=== PATIENT | male | born 1935 | race Caucasian/White ===

== ENCOUNTER → 2020-11-23 12:29 | Outpatient (CLI) | payer OTHER, SELFPAY ==
[2020-11-23 11:51] VITALS: BMI 30.3
[2020-11-23 13:23] LABS: Absolute Lymphocyte Count 5.31 X10^3/uL (0.83-4.51); Absolute Neutrophil Count 3.1 X10^3/uL (2.0-7.7); Basophil# 0.06 X10^3/uL; Basophil% 0.6 % (0-1); Eosinophil# 0.23 X10^3/uL; Eosinophils% 2.4 % (0-5); Hematocrit 40.7 % (40-54); Hemoglobin 12.9 g/dL (13.0-16.5); Lymphocyte # 5.31 X10^3/ul (0.83-4.51); Lymphocyte % 56.1 % (19-41); Mean Corp Hgb Conc 31.7 g/dL (32-36); Mean Corpuscular Hgb 29.6 pg (27.0-32.0); Mean Corpuscular Volume 93.3 fL (80-94); Mean Platelet Vol. 8.9 fl (6.2-12.0); Monocyte# 0.74 X10^3/uL; Monocyte% 7.8 % (0-10); NRBC Flagged by Analyzer 0 % (0-5); Neutrophil # 3.11 X10^3/uL (2.7-7.7); Neutrophil % 32.9 % (47-70); POSITIVE DIFFERENTIAL YES; Platelet Count 227 K/mm3 (150-450); RBC Distribution Width CV 14.2 % (11.6-14.6); RBC Distribution Width SD 49.1 fl (35.1-43.9); Red Blood Count 4.36 M/mm3 (4.6-6.2); White Blood Count 9.5 K/mm3 (4.4-11.0)
[2020-11-23 13:24] LABS: Differential Indicated SCAN CRITERIA MET
[2020-11-23 13:44] LABS: Reactive Lymphocyte 2+
[2020-11-23 14:00] LABS: Anion Gap 4 (5-15); BUN 33 mg/dL (7-18); Calcium,Total 9.1 mg/dL (8.5-10.1); Chloride 106 mmol/L (98-107); Creatinine, Serum 1.32 mg/dL (0.70-1.30); EST Glomerular Filtration Rate 55 mL/min (>60); Est Glom Filt Rate - Afr Amer 67 mL/min (>60); Glucose 100 mg/dL (74-106); Potassium 4.5 mmol/L (3.5-5.1); Sodium Level 141 mmol/L (136-145)
== END ==
PROVIDERS: Referring Provider Physician Assistant; Visit Provider Physician Assistant
DX: I73.9 Peripheral vascular disease, unspecified (principal)
CPT/HCPCS: 36415; 80048; 85025

== ENCOUNTER 2020-11-28 10:45 | Day surgery (SDC) | payer SELFPAY, OTHER ==
[2020-11-23 11:51] VITALS: BMI 30.3
[2020-11-25 09:20] VITALS: BMI 30.2
--- NOTE | 2020-11-28 11:59 | HP.PCM_ITS ---
History and Physical Date of Admission: 11/28/20 Intake Visit Reasons: PAD--req pt come at 1130 Chief Complaint: PAD, painful and swollen toe Tax Assistant Required: No Is patient in pain?: No Allergies No Known Allergies Allergy (Verified 11/23/20 11:52) Medications aspirin 81 mg tablet,delayed release 81 mg PO DAILY 11/23/20 [History Confirmed 11/23/20] ezetimibe 10 mg-simvastatin 10 mg tablet 1 tab PO DAILY 11/23/20 [History Confirmed 11/23/20] furosemide 40 mg tablet 40 mg PO DAILY 11/23/20 [History Confirmed 11/23/20] levothyroxine 75 mcg capsule 75 mcg PO DAILY 11/23/20 [History Confirmed 11/23/20] metoprolol tartrate 25 mg tablet 25 mg PO BID 11/23/20 [History Confirmed 11/23/20] omega 6-kdx-inq-fish oil 60 mg-90 mg-500 mg capsule 1 cap PO DAILY 11/23/20 [History Confirmed 11/23/20] potassium chloride 10 mEq tablet,extended release 10 meq PO DAILY 11/23/20 [History Confirmed 11/23/20] saw palmetto 450 mg capsule 450 mg PO BID 11/23/20 [History Confirmed 11/23/20] vit C,E,zinc,Pi-eswwa-4-lutein-zeaxanthin 250 mg-2.5 mg-0.5 mg capsule cap PO 11/23/20 [History Confirmed 11/23/20] PFSH Medical History (Updated 11/23/20 @ 12:[address] Alejandro Tejada MD) CAD (coronary artery disease) HTN (hypertension) Hyperlipidemia Hypokalemia Hypothyroidism PAD (peripheral artery disease) Surgical History (Updated 11/23/20 @ 11:50 by Lori Gibson) History of knee replacement Hx of heart bypass surgery Family History (Updated 11/23/20 @ 11:51 by Lori Gibson) Mother Cancer Social History (Updated 11/23/20 @ 11:51 by Lori Gibson) Smoking Status: Never smoker HPI HPI HPI: ILANA DENSON, is a 85 M who presents to the office today for surgical consultation. The patient is being referred by Dr. Varela and a written copy of my surgical consult recommendations will return to her. Patient carries a history of lymphedema of the lower extremities. He reports leg pain with walking and sometimes discomfort at night requiring him to hang his legs over the bed. Distal pulses were noted to be absent on clinical exam.By report the patient had an ZAHIRA exam performed at [facility] on November 03, 2020 showing moderate disease to the right lower extremity. Appears for the right lower extremity the femoral and popliteal have triphasic waveforms while the right posterior tibial is biphasic and dorsalis pedis is monophasic. The right PT ZAHIRA was 0.7. The left lower extremity demonstrates again the femoral popliteal Doppler waveforms are triphasic while the left posterior tibial and dorsalis pedis waveforms are both biphasic. The left ZAHIRA is 0.59. For the past several months the patient has had markedly increased pain particularly in the right foot and the right great toe. Apparently there was s ome concern that he might have gout. There is discussion that he was placed on some type of tapering medication. Initially he felt better but after the medication wore off he now is worse. He feels more comfortable standing and walking on the foot. It is quite uncomfortable when he has it raised up against gravity. He has had any blisters. He has been trying heat and cold therapy. Someone instructed him that this was good for it. 2017 he had coronary bypass surgery. Vein was removed from the right leg. He did not have a myocardial infarction at that time according to family. He gaudencio es chest pain shortness of breath palpitations. He does not recall any coronary stents. Apparently also previously was on statin medication. There is some record that he did not tolerate that. He is not currently on a statin medication. When questioned about family history. He denies vascular disease in his parents. He denies myocardial infarction, stroke, diabetes, neuropathy. He denies any previous trauma to his feet. He denies previous episodes of frostbite ROS General General: Yes fatigue; No weight change, appetite, colon cancer, breast cancer or weakness HEENT HEENT: No difficulty swallowing, eye injury, eye surgery, swollen glands or hoarseness Endo Endocrine: Yes thyroid disease; No diabetes mellitus, thyroid cancer, Hair loss, heat intolerance or cold intolerance Musc Musculoskeletal: Yes arthritis; No back problems, rheumatoid arthritis, gout or joint pain Cardio Cardiovascular: Yes heart disease and high blood pressure; No murmur, pacemaker, atrial fibrillation, heart attack, heart stent, palpitations, shortness of breat with exertion or chest pain Psych Psychiatric: No depression, anxiety or hearing voices Resp Respiratory: No shortness of breath, No sleep apnea, No cough, No COPD, No asthma, No emphysema and No wheezing Gastro Gastrointestinal: No abdominal pain, No nausea or vomiting, No diarrhea, No constipation, No blood in stool, No acid reflux, No hemorrhoids, No ulcers, No gallbladder problem and No black,tarry stools Joshua Hematologic: No blood thinners, No blood disorders, No bleeding, No anemia and No blood clots Neuro Neurologic: No weakness Exam Const General: cooperative, comfortable and no acute distress Nutritional Appearance: overweight Orientation: alert and awake [facility] Head: normal to inspection Eyes General: appearance normal, both eyes and all related structures Chest Other: Well-healed median sternotomy Resp Effort & Inspection: normal respiratory effort Auscultation: clear to auscultation bilaterally Cardio Rate: regular rate Rhythm: regular rhythm Other: Mildly bradycardic GI Palpation: soft and no hepatosplenomegaly Musc Cervical Spine: normal cervical lordosis Skin General: no rashes or lesions noted Neuro Cognition: normal cognition Speech: speech normal Extrem Other: Marked erythema bilateral feet from the forefeet distally. Mild swelling of the right great toe. Marked tenderness to superficial palpation. Swelling of the right great toe DIP joint. Hypertrophic nails. Hair loss. Significant elevation pallor and dependent rubor bilaterally worse on the right. Point tenderness to light touch of the right great toe. The remaining digits are erythematous but nonpainful to touch 2+ pitting edema right malleolar area and 1+ pitting edema left malleolar area Psych Thought Process: normal COVID (Procedure Consent) Procedure Criteria Procedure Criteria: Yes Elective The surgeon/proceduralist and patient have discussed in detail the risk of exposure to and/or potential harm posed by the COVID-19 virus with having a surgery/procedure at this time versus the risk of delaying the surgery/procedure. It is not possible to know either the risk of delaying the surgery or procedure or chance of getting an infection with perfect accuracy, but a joint decision was made between the patient and the surgeon/proceduralist to proceed at this time with the scheduled surgery/procedure as indicated on the consent form. Assessment and Plan Plan Details Additional Comments: The patient's bilateral extremity issues revolve around more than just arterial occlusive disease. He has right lower extremity worse than left lower extremity edema. 2+ pitting on the right and 1+ on the left. However he clearly has distinct problems with elevation pallor or dependent rubor or elevation pain. He is got significant small vessel disease. He has findings very much coinciding with infrageniculate arterial occlusive disease. He is clinically consistent with critical ischemia of the right foot. Whether he additionally has gout of the right great toe I will defer to Dr. Varela and I have discussed with the patient and recommend a abdominal pelvic right lower extremity arteriogram with possible endovascular intervention. I explained the technique, benefit, risk, alternatives. Regarding his bilateral lower extremity swelling I have made it very clear that this will not improve that and could possibly worsen his swelling. My attempt will be an effort to try to relieve some of his right lower extremity rest pain/critical ischemia. Unfortunately I am in dissipating that he has significant small vessel disease of the forefoot and digits. He is aware that I am not able to mechanically improve those. He is aware of the potential risk of digit or limb loss. He has had an opportunity to ask and have questions answered. We will check laboratory and try to schedule and proceed at his earliest convenience. I appreciate the opportunity of assisting with his surgical care Copy: Dr. Varela and Dr. Jelani Tejada M.D., F.A.C.S I have re-examined the patient. There are no clinical changes since date of exam.
--- NOTE | 2020-11-28 15:37 | PCM.OPRPT ---
Problems Associated Problem List Diagnoses (1) PAD (peripheral artery disease): Report of Operation Date of Procedure: 11/28/20 Pre-Operative Diagnosis: Critical ischemia right foot Post-Operative Diagnosis: Multi segmental right lower extremity peripheral arterial occlusive disease Surgery/Procedure Performed:: Abdominal pelvic right lower extremity arteriogram with right anterior tibial 2 x 210 mm Laila cross angioplasty and right anterior tibial 2.5 to 3 mm tapered by 210 mm Laila cross angioplasty Description of Surgical Findings:: Timeout and informed consent was obtained. 85-year-old General was taken to the special procedure lab placed upon the table. He received a total of 50 mcg of fentanyl and 2 mg of Versed a central and station. Bilateral groins were sterilely prepped and draped. Under ultrasound guidance the left common femoral artery was identified. The separation of the profundofemoral and superficial femoral artery cleanly identified and then slightly more proximal inspection performed. Under ultrasound guidance 2% lidocaine was instilled as a local anesthetic and throughout the procedure a total of 15 cc was instilled in the left groin. Under ultrasound guidance micropuncture technique was used to gain access the left common femoral retrograde with flow micropuncture wire micropuncture sheath 035 J-wire 5 [place] short sheath dilator. Then an 03 5 inch Glidewire was used to advance a 5 [place] universal flush catheter into the mid infrarenal abdominal aorta. Using 15 cc a second for 15 cc of diluted contrast. I then used the flush catheter to gain access to the right common iliac advance the catheter down into the right superficial femoral artery static views of the right lower extremity were obtained. I then switched out and used a 035 Magic wire remove the flush catheter remove the 5 [place] sheath put a 6 [place] 70 cm sheath distally in the right superficial femoral artery. The patient received 9000 units of heparin. Based upon ACT measurements throughout the procedure he received another 1000 units later in the procedure. I utilized a pest control pilot 150 wire and a 4 [place] flush catheter gain access to the right anterior tibial artery. I then switched out for a 018 quick cross catheter and using the combination the quick cross catheter and the pest control pilot wire got access through 2 different areas of stenosis. I was able to get the wire to go all the way down to the malleolar where I could not advance catheter wire. Pulled the wire back reversed it and use the back and very gently break through the distal cap of obstruction. I then removed the quick cross catheter and initially I placed a 2.5 to 3 mm tapered balloon perform balloon angioplasty of the entire length of the right anterior tibial artery but could not get distal advancement. So I then placed a 2 x 210 mm Laila cross balloon over the pest control pilot 150 wire and again had difficulties advancing distally. I was then able to get far enough to remove the pest control pilot [address] a stabilizer wire. Finally I removed the 2 mm catheter and placed back in the 2.5 to 3 mm tapered catheter and was able to get that passed what I thought was the distal cap of obstruction and this was at the malleolar. I perform insufflation up to 14 kwaku of pressure and held that for 3 minutes. Completion views were obtained through hand-injection this demonstrated dramatic improvement in the previously occluded right anterior tibial. 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 I felt that this actually might assist the artery staying open. Did not have a means at this point of treating it decided to leave that in situ wait for the patient anticoagulation to resolve and wait for ongoing office clinical follow-up. The balloons were removed. 035 Magic wire was inserted. The sheath was withdrawn. A Perclose device was placed over the Magic wire and it successfully secured the vessel. Patient stated that his right foot felt slightly warmer. Doppler signal suggested improved dorsalis pedis flow in the right. Foot appeared to be viable. The left groin puncture site stable. He was subsequently taken to the recovery area in satisfactory condition no apparent complication. He will be initiated on clopidogrel therapy. Images demonstrate that the mid infrarenal abdominal aorta is patent though there is irregular plaque right lateral aspect that is not flow-limiting. Bilateral common iliacs internal X and external iliacs appear to be widely patent. The right profundofemoral and superficial femoral and popliteal are widely patent. There is a total knee device on the right which partially obscures the view but I believe that I am able to see well enough and because the flow was brisk enough that there is no clinically significant stenosis. There is evidence of trifurcation flow on the right but then soon thereafter the right peroneal occludes in the right posterior anterior tibial artery occludes in the right anterior tibial artery occludes then it refills for several centimeters then it occludes again and then the very distal right anterior tibial proximal dorsalis pedis is visualized. Subsequent to the right anterior tibial angioplasty there now appears to be recannulation of flow of the 2 areas of complete occlusion there appears to be distal flow down upon the foot there is as noted earlier evidence of an arteriovenous fistula that was created distally exact location not specified but there is venous return with contrast noted. Impression Successfully reopened 2 areas of complete occlusion involving the right anterior tibial artery with now flow into the dorsalis pedis on the right. 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 It is suggested that this is somewhat distal in the right anterior tibial. Occluded right peroneal and occluded right posterior tibial with no good distal flow of either noted. Surgeon: Alejandro Tejada Type of Anesthesia: IV Sedation and Local
[2020-11-28 16:20] VITALS: BP 148/75; PULSE 75; RESP 18; O2SAT 94
[2020-11-28 17:20] VITALS: BP 126/69; PULSE 73; RESP 18; O2SAT 95
[2020-11-28 18:20] VITALS: BP 140/70; PULSE 75; RESP 18; O2SAT 94
--- NOTE | 2020-11-28 18:30 | NURSING ---
bedrest complete. walked patient in hallway. tolerated well. dressing c/d/i. no hematoma noted
== END 2020-11-28 18:00 | disposition home or self-care (01) ==
LOC: CLSP 15:37 → PCU 16:12 → CLSP 16:23 → PCU 16:49
PROVIDERS: Referring Provider Surgery; Visit Provider Surgery
DX: I73.9 Peripheral vascular disease, unspecified (principal); M79.89 Other specified soft tissue disorders; I25.10 Atherosclerotic heart disease of native coronary artery without angina pectoris; E78.5 Hyperlipidemia, unspecified; I10 Essential (primary) hypertension; E03.9 Hypothyroidism, unspecified; E87.6 Hypokalemia; Z79.899 Other long term (current) drug therapy; Z79.82 Long term (current) use of aspirin; Z95.1 Presence of aortocoronary bypass graft; M79.606 Pain in leg, unspecified
CPT/HCPCS: 36200; 36245; 37228; 75625; 75710; 76937; 93005; 99152; 99153; J7030; Q9967; C1725; C1760; C1769; C1887; C1894